=== PATIENT | male | born 1970 | race Caucasian/White ===

== ENCOUNTER 2019-12-11 18:05 | Outpatient (CLI) | payer SELFPAY ==
--- NOTE | 2019-12-11 14:45 | DI.CT_ITS ---
EXAM: CT HEAD CERVICAL SPINE WO CLINICAL HISTORY: headache for 5 days R51. TECHNIQUE: Imaging Protocol: Axial computed tomography images with coronal and sagittal reformatted images were created and reviewed COMPARISON: No exams were available for comparison FINDINGS: CT Head: Ventricles and Extra axial spaces: Normal in size and morphology for the patient's age. Hemorrhage: None. Cerebral parenchyma: Normal. Midline shift: None. Brainstem/Cerebellum: Normal. Calvarium: Normal. Visualized Paranasal sinuses/Mastoids: Clear. Soft Tissues: Unremarkable. CT Cervical Spine: Bones: No acute fracture or subluxation. Minimal degenerative changes are seen in the cervical spine characterized by small endplate osteophytes. Soft Tissues: Unremarkable. Lung Apices: Clear. IMPRESSION: 1. No acute intracranial process. 2. No acute fracture or subluxation in the cervical spine. 3. Mild degenerative changes in the cervical spine. RADIATION DOSE DELIVERED: 1,297.44mGy.cm Total DLP DATA REPOSITORY: All CT scans at this facility are submitted to the National Radiology Data Registry (NRDR) Dose Index Registry (DIR) with the [employer] (A[employer]). RADIATION OPTIMIZATION: All CT scans at this facility use at least one of these dose optimization te chniques: automated exposure control; mA and/or kV adjustment per patient size (includes targeted exa ms where dose is matched to clinical indication); or iterative reconstruction.
== END 2019-12-11 18:25 ==
PROVIDERS: PCP Family Medicine; Visit Provider Family Medicine
DX: R51 Headache (principal); M47.816 Spondylosis without myelopathy or radiculopathy, lumbar region
CPT/HCPCS: 70450; 72125

== ENCOUNTER 2023-06-09 15:46 | Emergency (ER) | payer OTHER, SELFPAY ==
[2023-06-09 15:51] VITALS: BP 153/103; PULSE 91; RESP 20; TEMP 36.8; O2SAT 99
--- NOTE | 2023-06-09 17:30 | NUR.NOTE ---
Nursing Note:PT needs PCP to establish care. Winter, ED
--- NOTE | 2023-06-09 19:07 | ED.GENADUL_ITS ---
Discharge Plan Disposition Patient Disposition: Home Condition: Stable Discharge Details Clinical Impression: Finger laceration Primary Care Provider: None,None ED Provider: Vicki Davis Home Meds and New Rx's Prescriptions: Continued ibuprofen 200 mg tablet 800 mg PO Q4H prednisone 20 mg tablet 40 mg PO DAILY Qty: 14 0RF Hold Instructions: Pt Stopped/Never Started Rx Instructions: Discharge Instructions Instructions: Finger Laceration (ED) Additional Instructions: Keep wound clean and dry Wash with soap and water once a day after the 24-hour mariela Suture removal in 12 days Do not submerge in water until sutures are removed Keep a dressing on the wound while at work, allow to air dry at home with in the next 3 days, as much as possible Ibuprofen and Tylenol as needed for pain I placed you on the list to establish care with a primary care physician, you will be contacted regarding an appointment Return spreading redness, fever, worsening pain The nerve block will wear off within the next 2 to 3 hours Discharge Data Discharge Date/Time-TO BE ENTERED AT DEPARTURE: 06/09/23 17:43 Medical Decision Making 53-year-old male presenting with laceration to left fifth digit on the hand. Patient is neurovascularly intact, flexion extension intact, skin avulsion, tetanus up-to-date Tolerated suture placement without incident Suture removal in 12 days recommended Return precautions reviewed and patient was understanding HPI General Date/Time Provider Initiated Documentation: 06/09/23 16:03 . HPI Narrative: This 53-year-old male presents with report of laceration to left hand, fifth digit with after putting ice left at work. Tetanus 2016. Denies any additional injuries. Event occurred approximately 8:00 this morning. Related Data Home Medications Medication Instructions Recorded Confirmed ibuprofen 200 mg tablet 800 mg PO Q4H 12/11/19 06/09/23 prednisone 20 mg tablet 40 mg (2 x 20 mg) PO DAILY neck 12/12/19 06/09/23 pain #14 tabs Previous Rx's Medication Instructions Recorded prednisone 20 mg tablet 40 mg (2 x 20 mg) PO DAILY neck 12/12/19 pain #14 tabs Allergies Allergy/AdvReac Type Severity Reaction Status Date / Time No Known Allergies Allergy Unverified 06/09/23 15:50 General Stated Complaint: Laceration DAVID: 4 PFSH All Active Problems (Updated 06/09/23 @ 17:31 by ISABELA Wynne) Finger laceration (Acute) Neck and shoulder pain (Acute) Headache (Acute) Social History Smoking/Tobacco Use Status: Current every day Tobacco Type: cigarettes Smoking risk assessment performed?: Yes Alcohol Intake: former Substance use type: does not use Do you feel safe in your relationship?: Yes Course Vital Signs Vital signs: Vital Signs Temperature 36.8 C 06/09/23 15:51 Pulse 91 H 06/09/23 15:51 Respiratory Rate 20 06/09/23 15:51 Blood Pressure 153/103 H 06/09/23 15:51 Pulse Oximetry 99 06/09/23 15:51 Temperature 36.8 C 06/09/23 15:51 Pulse 91 H 06/09/23 15:51 Respiratory Rate 20 06/09/23 15:51 Respiratory Effort Normal 06/09/23 15:54 Blood Pressure 153/103 H 06/09/23 15:51 Blood Pressure Position Sitting 06/09/23 15:51 Pulse Oximetry 99 06/09/23 15:51 Oxygen Delivery Method Room Air 06/09/23 15:51 Oxygen Flow Rate 0 06/09/23 15:51 Pain Level 8 06/09/23 15:51 Procedures Laceration Laceration 1: Site: hand Side (If applicable): left Size (cm): 3 Description: flap Depth: simple, single layer Local Anesthetic: Lidocaine 1% Amount of anesthesia used (mL): 3 Pre-repair: wound explored and irrigated extensively Skin layer closed with: nylon Size (cm): 4-0 Number of sutures: 4 Technique: horizontal mattress and other (vertical mattress)
== END 2023-06-09 17:43 | disposition home or self-care (01) ==
PROVIDERS: Emergency Provider Physician Assistant
DX: S61.217A Laceration without foreign body of left little finger without damage to nail, initial encounter (principal); W26.8XXA Contact with other sharp object(s), not elsewhere classified, initial encounter
CPT/HCPCS: 12002

== ENCOUNTER → 2023-08-28 02:39 | Outpatient (CLI) | payer OTHER, SELFPAY ==
--- NOTE | 2023-08-28 15:59 | DI.RAD_ITS ---
Exam(s) XR CERVICAL SPINE COMP 4-5V EXAM: XR CERVICAL SPINE COMP 4-5V CLINICAL HISTORY: RADICULOPATHY,M54.12. TECHNIQUE: 2D digital imaging was performed. Five views were performed. COMPARISON: No exams were available for comparison FINDINGS: BONES: No fracture or destructive lesion. Vertebral bodies are unremarkable. DISKS: Intervertebral disc spaces are maintained. ALIGNMENT: Cervical spinal alignment is within normal limits. The odontoid and atlantoaxial articulat ions are normal. SOFT TISSUE: Normal. The lung apices are clear. IMPRESSION: Unremarkable radiographs of the cervical spine. DATA REPOSITORY: RADIATION DOSE DELIVERED:
== END ==
PROVIDERS: Visit Provider Nurse Practitioner Family
DX: M54.12 Radiculopathy, cervical region (principal); M54.2 Cervicalgia
CPT/HCPCS: 72050

== ENCOUNTER 2023-10-16 20:01 | Outpatient (REF) | payer OTHER, SELFPAY ==
[2023-10-16 20:42] LABS: Calculated LDL 149 mg/dL (<100); Cholesterol 220 mg/dL (<200); HDL Cholesterol 50 mg/dL (40-60); Triglyceride 105 mg/dL (<150)
[2023-10-16 20:57] LABS: Hemoglobin A1C 5.6 % (<5.7)
== END 2023-10-16 20:02 | disposition home or self-care (01) ==
LOC: NCHCN 20:01
PROVIDERS: Visit Provider Nurse Practitioner Family
DX: Z13.1 Encounter for screening for diabetes mellitus (principal); Z13.6 Encounter for screening for cardiovascular disorders
CPT/HCPCS: 80061; 84153; 83036

== ENCOUNTER → 2023-10-24 02:40 | Outpatient (CLI) | payer OTHER, SELFPAY ==
--- NOTE | 2023-10-24 | DI.RAD_ITS ---
Exam(s) XR CERVICAL SP AYALA TRAUMA 2-3V EXAM: XR CERVICAL SP AYALA TRAUMA 2-3V CLINICAL HISTORY: CONTINUED NECK PAIN, M54.2. TECHNIQUE: 2D digital imaging was performed. COMPARISON: CT CT HEAD CERVICAL SPINE WO from 12/11/2019 CR XR CERVICAL SPINE COMP 4-5V from 08/28/2023 FINDINGS: Two views Flexion and extension lateral views reveal no evidence of fracture, listhesis, nor disc space narrowi ng. Facet joints appear unremarkable. Bone density normal. No osseous lesions. Flexion and extension do not demonstrate slippage-listhesis nor disc space narrowing. No atlantoaxia l subluxation. IMPRESSION: No significant findings. DATA REPOSITORY: RADIATION DOSE DELIVERED:
== END ==
PROVIDERS: Visit Provider Nurse Practitioner Family
DX: M54.2 Cervicalgia (principal)
CPT/HCPCS: 72040

== ENCOUNTER → 2023-11-23 03:25 | Outpatient (CLI) | payer OTHER, SELFPAY ==
--- NOTE | 2023-11-23 | DI.MRI_ITS ---
Exam(s) MR CERVICAL SPINE WO EXAM: MR CERVICAL SPINE WO CLINICAL HISTORY: M54.2 Cervicalgia, pain on extension-evaluat michaela C1-C2,no abn on plain film TECHNIQUE: Multiplanar multisequence MRI of the cervical spine was performed without intravenous con trast. COMPARISON: CR XR CERVICAL SP AYALA TRAUMA 2-3V from 10/24/2023 FINDINGS: CERVICOMEDULLARY JUNCTION: Intact with no evidence of cerebellar tonsillar ectopia. No obvious abnor mality of the odontoid process. No evidence of Chiari 1 malformation. CERVICAL SPINAL CORD: There is no abnormal signal in the cervical spinal cord and no evidence of foca l cord atrophy nor focal cord swelling. OSSEOUS:There are no cervical fractures evident. No significant osseous lesions in the cervical vert ebrae. The cervical curvature is maintained. INDIVIDUAL LEVELS: C2-3: No disc herniation nor central canal stenosis. No foraminal stenosis. No facet arthropathy. C3-4: Normal disc height and signal. There is focal central subligamentous annular bulge which exten ds posteriorly 2 millimeters and is 3 mm wide and indents the thecal sac at this level. Contacts but does not indent the cervical spinal cord and there is no abnormal signal in the cord at this level. Central canal dimensions are within normal limits. There is no significant facet arthropathy. No f oraminal stenosis evident. C4-5: Normal disc height and signal. There is asymmetric mild annular bulging on the right side whic h extends posteriorly 2.5 mm and is approximately 1 cm wide, effacing the right-side of the thecal sa c and contacting the anterior aspect of the spinal cord at this level. The central canal dimensions are lower normal at this level and there is no abnormal signal seen in the cord at this level. There is no extension into the exiting neural foramina. There is no foraminal stenosis. No facet arthrop athy evident at this level. C5-6: Normal disc height and signal. At this level there is mild symmetrical annular bulging without a dominant disc herniation. Mild effacement of the anterior thecal sac. Mild central canal stenosi s noted at this level with AP measurement of 8 0.5 mm. No abnormal signal seen in the spinal cord at this level. There is no significant facet arthropathy nor foraminal stenosis. No Luschka joint ost eophytes. C6-7: Normal disc height and signal. No disc herniation or central canal stenosis evident at this le reno. No abnormal cord signal. No Luschka joint osteophytes. No facet arthropathy. No foraminal st enosis. C7-T1: No disc herniation nor central canal stenosis. No facet arthropathy.No foraminal stenosis. IMPRESSION: 1. Mild multilevel findings at C3-4, C4-5, and C5-6 levels as described individually above. 2. There is mild central canal stenosis at C5-6 level. No evidence of foraminal stenosis at any leve l. 3. There is no facet arthropathy in the cervical spine. 4. No abnormal signal in the cervical spinal cord and no evidence of focal cord swelling nor focal c ord atrophy. DATA REPOSITORY:
== END ==
PROVIDERS: PCP Nurse Practitioner Family; Visit Provider Nurse Practitioner Family
DX: M50.021 Cervical disc disorder at C4-C5 level with myelopathy (principal)
CPT/HCPCS: 72141

== ENCOUNTER 2024-01-26 06:57 | Day surgery (SDC) | payer OTHER, SELFPAY ==
--- NOTE | 2024-01-25 20:52 | COLE_ITS ---
Date of service: 01/26/24 Time of Service: 09:15 Colonoscopy Report Date of procedure: 01/26/24 Pre-op diagnosis general: CRC screening Post-op diagnosis procedure note: other (Diverticula/polyps) Surgeon: Preethi Ashley Anesthesia Type: General:No Airway Estimated blood loss (mL): 1 Pathology: other Complications: None Disposition: same day Prep: Miralax/Dulcolax Retraction Time: 10 Procedure Description: After informed consent was obtained, explaining risks of the procedure, including but not limits to: bleeding, infections, complications of anesthesia, perforations (which may require antibiotics and /or surgery and stay in the hospital), and abdominal pain/cramping. The patient was taken to the procedure room and placed in a left decubitous position. Monitors were applied and a time out was done. The patients name, date of , procedure, allergies to medications and metal in their body was reviewed. The patient was then sedated. Once sedated and comfortable a rectal exam was done. External exam was normal. Internal exam revealed a normal sphincter tone and no palpable masses. The previously lubricated Olympus scope was then introduced (see RN notes for scope number) and retrofelexed. No internal hemorrhoids were identified. The scope was then advanced to the cecum without difficulty. The TI and appendiceal orifice were identified. The scope was then slowly retracted over minutes back into the rectum. Polyps: A flat, .5cm polyp was found at 80 & 30cm. These was removed with a cold biting forceps. All of the specimen was retrieved. This will be sent to pathology. There is no bleeding noted from the polypectomy site. . Diverticula: pt had a moderate amount of small mouthed diverticula in the sigmoid colon. There were no signs of active bleeding or infection. The mucosa is pink and healthy w/ a normal vascular pattern. The scope was removed, and the patient was woken up and taken back to Same day surgery in stable condition. The patient tolerated the procedure well and there were no immediate complications. Follow up: The patient should follow up in 5-7 years, path pending, unless they develop changes in bowel habits or other new gastrointestinal complaints. [place] Bowel Prep [place] Bowel Prep Right Colon: 3 Left Colon: 3 Transverse Colon: 3 Total Score: 9
--- NOTE | 2024-01-25 20:53 | PDOC.DSDIS_ITS ---
Date of service: 01/26/24 Time of Service: 09:20 Discharge Plan Disposition Patient Disposition: Home Condition: Good Discharge Details Reason For Visit: colon cancer screening Attending Provider: Preethi Ashley Primary Care Provider: Danica Loya Home Meds and New Rx's Prescriptions: Continued polyethylene glycol 3350 17 gram/dose powder 17 g PO ONCE Qty: 238 0RF Rx Instructions: Take per colonoscopy instructions provided by ordering providers office ibuprofen 200 mg tablet 800 mg PO Q4H acetaminophen 500 mg capsule 1,000 mg PO Q6H PRN Discontinued bisacodyl [Dulcolax (bisacodyl)] 5 mg tablet,delayed release (DR/EC) 5 mg PO ONCE Qty: 4 0RF Rx Instructions: Take per colonoscopy instructions provided by ordering providers office Discharge Instructions Additional Instructions: DSU Colonoscopy Post- Op Instructions Instructions for Everyone who is given Anesthesia: For your safety, please do the following for the next twenty-four (24) hours: *Do Not operate a motor vehicle (car, truck, motorcycle, etc.) *Do Not drink alcoholic beverages or use any recreational drugs for the first 24 hours or while taking pain medications. The medications in your body may have a reaction that can be dangerous. *Do Not make any important decisions or sign any important papers. Findings: Diverticula?make sure you are moving your bowels on a regular basis and not straining. If you find you are having problems with constipation or straining, then it is recommended you start a fiber product such as Metamucil Follow up: You did have 2 polyps that we removed today. My office will send you a letter in 2 to 3 weeks time with the results of the biopsy and when we want you to repeat the colonoscopy, somewhere between 5 to 7 years time. 1. No lifting over 20 pounds or strenuous activity for the first 24 hours after your procedure. After 24 hours there are no restrictions on your activity but you may feel fatigued for a few days. 2. After you arrive home you may have a light meal and return to your normal diet as you can tolerate it without feeling sick to your stomach. 3. You may have a bloated, gaseous feeling in your belly (abdomen) after a colonoscopy. Passing gas and belching will help. Walking or lying down on your left side with your knees flexed may relieve the discomfort. Call the office at [phone] (Office) or [phone] (Hospital) right away if you notice any of the following: a.Vomiting of blood or ?coffee ground stools?. b.Rectal bleeding 1Tbsp, blood clots or continuous bleeding. c.Severe belly (abdominal) pain. d.A hard distended belly (abdomen) and an inability to pass gas. 4. Please don?t expect to have a normal BM (bowel movement) for 2-3 days after your procedure. 5. If there are questions regarding the findings of your procedure, please contact your doctor 6. If you are unable to contact your doctor with a problem, contact the hospital at [phone]. 7. Continue all your regular medications unless directed otherwise. I understand the above instructions and have no questions. Signature of Patient or Adult Escort Name of Responsible Adult Escort Signature of Nurse Date/Time Stand Alone Forms: Anesthesia Discharge Phan Gandhi (DSU) Activity:: see above Diet:: As Tolerated Discharge Orders Discharge Orders: Discharge Order (Routine); Ordered 01/26/24 Ordered By: Preethi Ashley DS: Diagnosis Discharge Diagnosis (1) Neck and shoulder pain: Status: Acute (2) Headache: Status: Acute (3) Smoker: Status: Acute (4) Screening for malignant neoplasm of colon performed: Status: Acute Asessment and Plan: The patient is seen and examined after their colonoscopy.? The patient has been able to pass gas.? They are not having abdominal pain.? They have been able to tolerate liquids and a snack.? They do not have any nausea or vomiting.? They are not having any chest pain or shortness of breath.??? They are not having any rectal bleeding. Their vital signs have been stable-see nursing notes. We discussed findings during their colonoscopy, and any biopsies that were done/polyps that were removed. The patient will be sent a letter with any biopsy results, and when to repeat the colonoscopy.-see discharge instructions. Patient was given explicit instructions to follow-up regarding colonoscopy-refer to discharge instructions.? We reviewed resumption of medications. Patient verbalized understanding and discharged in stable and satisfactory condition- See nursing notes. (5) Diverticula of colon: Status: Acute (6) Colon polyp: Status: Acute
--- NOTE | 2024-01-26 05:50 | ANES.PREOP_ITS ---
General Info Date of Service Date Performed: 01/26/24 Height: 5 ft 10.5 in Weight: 93.894 kg Body Mass Index (BMI): 29.2 Surgical Procedure: Operation Date: 01/26/24 08:20 Proposed Procedure Side Surgeon franko Ashley, DO Meds Allergies and Home Medications Allergies Allergy/AdvReac Type Severity Reaction Status Date / Time No Known Allergies Allergy Verified 01/26/24 07:07 Home Medication ?Medication ?Instructions ?Recorded ibuprofen 200 mg tablet 800 mg PO Q4H 12/11/19 polyethylene glycol 3350 17 17 g PO ONCE #238 grams 01/11/24 gram/dose oral powder acetaminophen 500 mg capsule 1,000 mg PO Q6H PRN 01/25/24 Current Visit Medications: Current Medications Generic Name Dose Route Start Last Admin Trade Name Freq PRN Reason Stop Dose Admin Hyoscyamine Sulfate 0.125 mg 01/26/24 20:50 Hyoscyamine 0.125 Mg Sl/Oral/Chew SL 02/25/24 20:49 DIRECTED PRN Ringer's Solution 1,000 mls @ 80 mls/hr 01/26/24 06:00 IV 01/26/24 23:59 INFUSION [facility] IV Miscellaneous Supplies 1 each 01/26/24 06:00 Iv Access IV 01/26/24 23:59 DIRECTED WILLIAM Ondansetron HCl 4 mg 01/26/24 08:50 Ondansetron 4 Mg/2 Ml Vial IVP 02/25/24 08:49 Q4H PRN PRN Nausea / Vomiting Sodium Chloride 0 ml 01/26/24 06:00 Normal Saline Flush 10 Ml Syr IV 01/26/24 23:59 PRN PRN Sodium Chloride 0 ml 01/26/24 06:00 Normal Saline 10 Ml Vial IJ 01/26/24 23:59 DIRECTED PRN Sterile Water 0 ml 01/26/24 06:00 Water,Injection,Sterile 10 Ml Vial IJ 01/26/24 23:59 DIRECTED PRN PFSH Active Problems Active Problems: Problem Status Onset Code Screening for malignant neoplasm of colon performed Acute Z12.11 Smoker Acute F17.200 Neck and shoulder pain Acute M54.2, M25.519 Headache Acute R51 Surgical History Surgical History [place] teeth extracted Tobacco Smoking/Tobacco Use Status: Current every day Tobacco Type: cigarettes Alcohol Alcohol Intake: current Alcohol intake frequency: holidays/special occasions only Substance Use Substance use type: does not use Vital Signs and Lab Results Vital Signs Most Recent Vital Signs in EMR: Temp Pulse Resp BP Pulse Ox 36.9 C 90 18 125/85 100 01/26/24 07:08 01/26/24 07:08 01/26/24 07:08 01/26/24 07:08 01/26/24 07:08 Lab Results Blood Type / Crossmatch: No Data to Display Complete Blood Count: No Data to Display Complete Metabolic Panel: No Data to Display Liver Function Panel: No Data to Display Coagulation Panel: No Data to Display Cardiac Panel: No Data to Display Arterial Blood Gas: No Data to Display Venous Blood Gas: No Data to Display Pancreas Panel: No Data to Display Thyroid Panel: No Data to Display Infectious Disease: No Data to Display Blood Cultures: No Data to Display Toxicology Panel: No Data to Display Anesthesia Assessment and Plan Anesthesia History Personal History: No History of General Anesthesia Family History: No Family History of Anesthesia Complications Exercise Tolerance Exercise Tolerance: Metabolic Equivalents>4 Pertinent Negatives Pertinent Negatives: No Symptoms of GERD, No Major Cardiovascular Symptoms or Complaints, No Major Pulmonary Symptoms or Complaints and No History of CVA/TIA Cardiac & Pulmonary Exam Cardiac Exam: Normal S1/S2 Heart Sounds Pulmonary Exam: Clear Bilateral Breath Sounds Cardiac and Pulmonary Comment:: Smoker Implantable Cardiac Device Does patient have a Pacemaker or an ICD?: No Airway Exam Known Difficult Airway: No Mallampati Class: 3 Mouth Opening: Normal (> 3cm) Thyromental Distance: Greater than 3 cm Neck Range of Motion: Full ROM Neck Circumference: Normal Teeth Condition: Normal Dentition ASA Classification ASA Score: ASA 2 Emergency Case?: No NPO Status NPO Status: NPO Clears >2 hours, Solids >8 hours Anesthesia Plan Resuscitation Status: Full Code Anesthesia Technique: General Anesthesia Airway Planned: Natural Airway Monitors Used: Standard Monitors Preoperative Comments:: 53 y/o male with history of neck and shoulder pain, vertigo and tobacco use presents for colonoscopy screening
[2024-01-26 07:08] VITALS: BP 125/85; PULSE 90; RESP 18; TEMP 36.9; O2SAT 100
[2024-01-26] MEDS: Lactated Ringers 1,000 ML 80 ML IV (07:31)
[2024-01-26 07:51] VITALS: BMI 29.2
--- NOTE | 2024-01-26 08:25 | BOWEL_PTH ---
PATIENT: Kole Chahal LOC: [facility] U#:[id number] AGE/SX: 53/M ROOM: RE01/26/[address]: Preethi Ashley : 1970 BED: DIS: 01/26/2024 SPEC #: [id number] RECD: 01/26/24 12:27 STATUS: ALBERTO REQ #: [id number] TOMER: 01/26/24 08:[address]: Preethi Ashley DEPT: Surgical Specimen RECD BY: Vicki Villarreal ENTERED: 01/26/24 12:27 SP TYPE: Bowel OTHR DR: Danica Loya Tissues: 1 - BIOPSY BOWEL 2 - BIOPSY BOWEL Procedures: GROSS AND MICRO LEVEL 4 Comments: [id number]
[2024-01-26 08:40] VITALS: BP 100/82; PULSE 98; RESP 16; TEMP 36.2; O2SAT 94
--- NOTE | 2024-01-26 09:07 | W.ANESPOSTOP ---
Postoperative Evaluation Date, Time and Location Date Performed: 01/26/24 Time Performed: 08:48 Patient Location: Day Surgery Unit Vital Signs Most Recent Imported Vital Signs: Most Recent Vital Signs Temp Pulse Resp BP Pulse Ox 36.2 C L 98 H 16 100/82 94 01/26/24 08:40 01/26/24 08:40 01/26/24 08:40 01/26/24 08:40 01/26/24 08:40 Pain Score Most Recent Pain Score: Most Recent Pain Score Pain Level 0 01/26/24 08:40 Assessment Mental Status: Awake (Alert & Oriented to Patient Baseline) Airway and Respiratory Function: Patent airway with normal (patient baseline) respiratory exam Cardiovascular Function: Hemodynamically Stable Hydration Status: Adequately Hydrated Nausea & Vomiting: No Nausea or Vomiting Pain: Pt. Denies Any Pain Peripheral Nerve Block: Patient did not receive a nerve block
[2024-01-26 09:10] VITALS: BP 118/91; PULSE 79; RESP 18; TEMP 36.7; O2SAT 94
== END 2024-01-26 09:37 | disposition home or self-care (01) ==
LOC: SUR 06:57
PROVIDERS: PCP Physician Assistant Medical; Visit Provider Surgery
PROC: 0DJD8ZZ Inspection of Lower Intestinal Tract, Via Natural or Artificial Opening Endoscopic (ICD-10-PCS; CPT 45378; principal; 2024-01-26 08:15)
DX: Z12.11 Encounter for screening for malignant neoplasm of colon; K57.30 Diverticulosis of large intestine without perforation or abscess without bleeding; D12.4 Benign neoplasm of descending colon; F17.210 Nicotine dependence, cigarettes, uncomplicated
CPT/HCPCS: 45380; 88305; J2001; J2704